=== PATIENT | male | born 1960 | race Caucasian/White ===

== ENCOUNTER 2018-04-28 06:40 | Inpatient (IN) ==
--- NOTE | 2018-04-19 14:00 | EKG Report ---
Test Performed on : 04/19/2018 1:54:25 PM Test Reason : PAT Blood Pressure : / mmHG Vent. Rate : 079 BPM Atrial Rate : 079 BPM P-R Int : 142 ms QRS Dur : 086 ms QT Int : 356 ms P-R-T Axes : 062 078 065 degrees QTc Int : 408 ms Normal sinus rhythm. Normal ECG When compared with ECG of 17-SEP-2015 21:31, Nonspecific T wave abnormality no longer evident in Anterolateral leads QT has shortened Unconfirmed Result
[2018-04-19 14:06] LABS: HEMATOCRIT 45.1 % (42.0-52.0); HEMOGLOBIN 14.4 g/dL (14.0-18.0); MCH 28.1 PG (27-31); MCHC 31.9 g/dL (33-37); MCV 87.9 FL (81-99); MPV 9.5 FL (7.4-10.4); RBC 5.13 XMIL (4.7-6.1); WBC 11.27 X1000 (4.8-10.8)
[2018-04-19 15:03] LABS: CALCIUM 9.3 mg/dL (8.8-10.2); CREATININE 1.3 mg/dL (0.7-1.2); POTASSIUM 3.8 mmol/L (3.5-5.1)
[2018-04-28] MEDS: MEFOXIN 2 GM/NS 2 GM/50 ML IVPB IV SCH ×2 (00:30→16:26)
[2018-04-28] MEDS ORDERED: TRANSDERM-SCOP ONE (06:59)
[2018-04-28] MEDS ORDERED: PEPCID ONE (06:59)
[2018-04-28] MEDS ORDERED: LR 1,000 ML ONE ×2 (06:59→08:31)
[2018-04-28] MEDS ORDERED: ENTEREG ONE (06:59)
[2018-04-28] MEDS ORDERED: VALIUM ONE (06:59)
[2018-04-28] MEDS ORDERED: MEFOXIN 2 GM/NS 2 GM/50 ML IVPB ONE (07:00)
[2018-04-28] MEDS ORDERED: FENTANYL ONE (07:40)
[2018-04-28] MEDS ORDERED: VERSED ONE (07:40)
[2018-04-28] MEDS ORDERED: DIPRIVAN 1% ONE (07:40)
[2018-04-28] MEDS ORDERED: EXPAREL 1.3% ONE (07:42)
[2018-04-28] MEDS ORDERED: SODIUM CHLORIDE 0.9% 10 ML ONE (07:42)
[2018-04-28] MEDS ORDERED: MARCAINE 0.5% ONE (07:44)
[2018-04-28] MEDS ORDERED: NEO-SYNEPHRINE ONE (07:57)
[2018-04-28] MEDS ORDERED: XYLOCAINE-MPF 2% ONE (07:57)
[2018-04-28] MEDS ORDERED: QUELICIN (DOSE) ONE (07:57)
[2018-04-28] MEDS ORDERED: DECADRON ONE (07:57)
[2018-04-28] MEDS ORDERED: ZOFRAN ONE (07:57)
[2018-04-28] MEDS ORDERED: NORCURON ONE ×2 (07:57→11:09)
[2018-04-28] MEDS ORDERED: STERILE WATER INJ. ONE ×2 (07:57→11:09)
[2018-04-28] MEDS ORDERED: NEOSTIGMINE ONE ×2 (07:58→13:55)
[2018-04-28 09:56] LABS: URINE SOURCE CATH
[2018-04-28 10:01] LABS: BILIRUBIN URINE NEGATIVE (NEGATIVE); BLOOD URINE NEGATIVE (NEGATIVE); COLOR YELLOW; GLUCOSE URINE NEGATIVE (NEGATIVE); KETONE URINE NEGATIVE (NEGATIVE); LEUKOCYTES URINE NEGATIVE (NEGATIVE); NITRITE URINE NEGATIVE (NEGATIVE); PH URINE 6.5; PROTEIN URINE NEGATIVE (NEGATIVE); TURBIDITY URINE CLEAR (CLEAR); UROBILINOGEN URINE NORMAL (NORMAL)
[2018-04-28 10:02] LABS: UR EPITHELIAL CELLS <10 /HPF (<10); URINE BACTERIA NEGATIVE /HPF; URINE RBC <10 /HPF (<10); URINE WBC <10 /HPF (<10)
[2018-04-28] MEDS ORDERED: DILAUDID ONE (10:36)
[2018-04-28] MEDS ORDERED: D5 1/2 NS + KCL 20 MEQ 1,000 ML ONE (12:24)
[2018-04-28] MEDS ORDERED: OFIRMEV 1000 MG/ISOTONIC SOLN 1,000 MG/100 ML BOTTLE ONE (12:25)
[2018-04-28] MEDS ORDERED: ROBINUL ONE (13:56)
[2018-04-28] MEDS ORDERED: TYLENOL PR PRN (14:10)
--- NOTE | 2018-04-28 14:54 | OPERATIVE NOTE ---
PROCEDURE DATE: 04/28/2018 PREOPERATIVE DIAGNOSIS: Right colon polyp with high-grade dysplasia. POSTOPERATIVE DIAGNOSIS: Right colon polyp with high-grade dysplasia. PROCEDURE: Laparoscopic robot assisted right hemicolectomy. SURGEON: Albert Rahman MD. LIFE SCIENTIST: Dr. Serna. Dr. Serna assisted with the entirety of the case. His presence was crucial for the completion of the case. ANESTHESIA: General endotracheal. INTRAOPERATIVE FINDINGS: Tumor was marked with Marleny ink on the lateral aspect of the ascending colon very proximally located. COMPLICATIONS: None at the time of this dictation. ESTIMATED BLOOD LOSS: 50 mL. SPECIMENS REMOVED: Right colon. BRIEF HISTORY: A 58-year-old male with a screening colonoscopy that had a high-grade dysplasia, polyp noted. It had been tattooed. It was felt that he would benefit from a colectomy. The risks, benefits, and alternatives were discussed. All questions answered. DESCRIPTION OF PROCEDURE IN DETAIL: After informed consent was obtained, patient brought to the operative theater, transferred to the operative table, placed in the supine position. General endotracheal anesthesia was then performed without complication. A formal time-out was then performed confirming patient, date, procedure. All were in agreement. At that time, attention was given to the abdomen. Abdomen was then prepped and draped in sterile fashion. We placed reverse trocar in the infraumbilical position using the Optiview technique. We then inserted an 8 mm trocar subxiphoid,, a 12 mm trocar on the left side in the anterior axillary line, an 8 mm trocar in the mid suprapubic area, and then a 5 mm trocar in the left lower quadrant. Using these, we docked the robot. I turned my attention to the robot console. We were able to identify the area of tattooing. We started by elevating the colon. We isolated the ileocolic artery, transected it, and then started doing a medial to lateral approach, dissecting all the way to identify the duodenum, preserving the duodenum. We came across the right colic branch of the middle colic which we preserved. We felt this would be a good place to do our staple. We dissected all the way both medially to laterally and transected across the colon at this point, and then transected across the terminal ileum. We could not use firefly because the patient had shellfish allergy. We then placed the colon up above the liver. We then brought our two ends into isoperistaltic anastomosis, firing the stapler intracorporal, and then closing the common channel running in layers using absorbable V-LOC suture. There was good blood flow to both sections. We then removed the mass by extending the infraumbilical incision and putting a wound protector in it and brought the colon out in its entirety. We then closed the infraumbilical incision with 0 Vicryl interrupted stitches. We then closed all skin incisions with 4-0 Monocryl. The patient tolerated the procedure well, was transferred back to the recovery room in stable condition. cc: Albert Rahman MD
[2018-04-28] MEDS: D5 1/2 NS + KCL 20 MEQ 1,000 ML IV SCH (16:33)
[2018-04-28] MEDS: OFIRMEV 1000 MG/ISOTONIC SOLN 1,000 MG/100 ML BOTTLE IV SCH ×2 (18:15→23:52)
[2018-04-28] MEDS: ULTRAM PO PRN ×2 (18:15→22:52)
[2018-04-28] MEDS ORDERED: REQUIP PO PRN (19:12)
[2018-04-28] MEDS ORDERED: HALL'S COUGH LOZENGE MT PRN (21:06)
[2018-04-28] MEDS: ELAVIL PO SCH (21:29)
[2018-04-28] MEDS: MIRAPEX PO SCH (21:29)
[2018-04-28] MEDS: ROBAXIN PO SCH (21:29)
[2018-04-28] MEDS: FLOMAX PO SCH (21:30)
[2018-04-28] MEDS: PRAVACHOL PO SCH (21:31)
[2018-04-28] MEDS: HEPARIN SUBQ SCH (21:32)
[2018-04-28] MEDS: PERIDEX MT SCH (21:32)
[2018-04-28] MEDS: UROCIT-K PO SCH (21:38)
[2018-04-29] MEDS: ULTRAM PO PRN (03:25)
[2018-04-29] MEDS: MEFOXIN 2 GM/NS 2 GM/50 ML IVPB IV SCH (03:26)
[2018-04-29] MEDS: ZOFRAN IV PRN ×3 (03:30→23:28)
[2018-04-29] MEDS: DILAUDID IV PRN ×4 (05:48→20:43)
[2018-04-29] MEDS: HEPARIN SUBQ SCH ×3 (06:41→23:30)
[2018-04-29] MEDS: OFIRMEV 1000 MG/ISOTONIC SOLN 1,000 MG/100 ML BOTTLE IV SCH (06:41)
[2018-04-29] MEDS: LOFIBRA PO SCH (08:54)
[2018-04-29] MEDS: NEXIUM PO SCH (08:55)
[2018-04-29] MEDS: KLONOPIN PO SCH (08:55)
[2018-04-29] MEDS: ENTEREG PO SCH ×2 (08:55→20:29)
[2018-04-29] MEDS: ROBAXIN PO SCH ×2 (08:55→20:28)
[2018-04-29] MEDS: COZAAR PO SCH (08:55)
[2018-04-29] MEDS: PERIDEX MT SCH ×2 (08:57→20:29)
[2018-04-29] MEDS: UROCIT-K PO SCH ×2 (08:57→20:29)
[2018-04-29] MEDS ORDERED: TYLENOL PR PRN (12:00)
[2018-04-29] MEDS ORDERED: TYLENOL PO PRN (12:00)
[2018-04-29] MEDS: D5 1/2 NS + KCL 20 MEQ 1,000 ML IV SCH ×2 (16:28→20:42)
--- NOTE | 2018-04-29 17:15 | GENERAL SURGERY PROGRESS NOTE ---
DATE: 04/29/2018 He is postop day 1 after robotic right colectomy done by Dr. Rahman. He is complaining of abdominal distention and pain. He does report that he has been somewhat nauseated. He says he has passed a little bit of flatus which gives him a little bit of relief and he has passed some old blood in his stool. He is afebrile. Heart rate is 93. Blood pressure 137/86. His abdomen is distended tympanitic. Some bowel sounds are present. He wants his Meza catheter out so it would make it easy for him to get to the bathroom. PLAN: Will be to remove his Meza catheter. We will recheck his labs tomorrow. cc: MD Albert Purvis MD
[2018-04-29] MEDS: PRAVACHOL PO SCH (20:28)
[2018-04-29] MEDS: MIRAPEX PO SCH (20:28)
[2018-04-29] MEDS: ELAVIL PO SCH (20:29)
[2018-04-29] MEDS: FLOMAX PO SCH (20:30)
[2018-04-29] MEDS ORDERED: MYLICON PO PRN (21:59)
[2018-04-29] MEDS ORDERED: DULCOLAX PR ONE (22:02)
[2018-04-30] MEDS ORDERED: MYLICON DROPS PO PRN ×2 (00:30→00:33)
[2018-04-30] MEDS: DILAUDID IV PRN (00:39)
[2018-04-30] MEDS ORDERED: MYLICON PO PRN (00:45)
[2018-04-30] MEDS: HEPARIN SUBQ SCH ×4 (00:50→22:02)
[2018-04-30] MEDS: UROCIT-K PO SCH ×3 (00:51→22:02)
[2018-04-30] MEDS: ZOFRAN IV PRN (05:08)
[2018-04-30 06:46] LABS: BASO# 0.02 X1000 (0.0-0.2); BASO% 0.1 % (0.0-0.8); EOS# 0.16 X1000 (0.0-0.7); EOS% 0.9 % (0.0-10.0); HEMATOCRIT 43.5 % (42.0-52.0); HEMOGLOBIN 14.2 g/dL (14.0-18.0); LYMPH# 1.76 X1000 (1.2-3.4); LYMPH% 9.5 % (20.5-51.1); MCH 28.6 PG (27-31); MCHC 32.6 g/dL (33-37); MCV 87.7 FL (81-99); MONO# 1.28 X1000 (0.11-0.59); MONO% 6.9 % (1.7-9.3); MPV 9.9 FL (7.4-10.4); NEUT# 15.27 X1000 (1.4-6.5); NEUT% 82.6 % (42.2-75.2); PLT 414 X1000 (130-400); RBC 4.96 XMIL (4.7-6.1); RDW 14.2 % (11.5-14.5); WBC 18.49 X1000 (4.8-10.8)
--- NOTE | 2018-04-30 08:04 | GENERAL SURGERY PROGRESS NOTE ---
DATE: 04/30/2018 Mr. Cotter is afebrile, T-max 99.5 degrees, heart rate 98, blood pressure 157/85. He did vomit this morning. His abdomen is distended and tympanitic. He requested his Meza be removed yesterday. We did drain his bladder last night but this morning, he only has 90 mL in his bladder so we will give him more time today to urinate. Intake 2729 and output 2175. White count 18,500, hemoglobin 14.2. PLAN: I have cautioned him against taking too much by mouth because of his ileus. We will give him more time with regard to his urinary output. He is on KVO fluids. I did tell him that the narcotics will slow his gut transit down, even though he says he needs something for relief. We will recheck his labs tomorrow. cc: MD Albert Purvis MD
[2018-04-30] MEDS: KLONOPIN PO SCH (08:58)
[2018-04-30] MEDS: PERIDEX MT SCH ×2 (08:58→22:03)
[2018-04-30] MEDS: COZAAR PO SCH (08:58)
[2018-04-30] MEDS: LOFIBRA PO SCH (08:58)
[2018-04-30] MEDS: NEXIUM PO SCH (08:58)
[2018-04-30] MEDS: ENTEREG PO SCH ×2 (08:58→22:01)
[2018-04-30] MEDS: ROBAXIN PO SCH ×2 (08:58→22:01)
[2018-04-30] MEDS ORDERED: MAALOX PLUS LIQUID PO PRN (12:21)
[2018-04-30] MEDS: D5 1/2 NS + KCL 20 MEQ 1,000 ML IV SCH (18:46)
[2018-04-30] MEDS: ELAVIL PO SCH (22:01)
[2018-04-30] MEDS: ULTRAM PO PRN (22:01)
[2018-04-30] MEDS: MIRAPEX PO SCH (22:02)
[2018-04-30] MEDS: PRAVACHOL PO SCH (22:02)
[2018-04-30] MEDS: FLOMAX PO SCH (22:02)
[2018-05-01 06:33] LABS: BASO# 0.05 X1000 (0.0-0.2); BASO% 0.4 % (0.0-0.8); EOS# 0.73 X1000 (0.0-0.7); HEMATOCRIT 38.8 % (42.0-52.0); HEMOGLOBIN 12.5 g/dL (14.0-18.0); LYMPH# 1.87 X1000 (1.2-3.4); LYMPH% 15.3 % (20.5-51.1); MCH 28.6 PG (27-31); MCHC 32.2 g/dL (33-37); MCV 88.8 FL (81-99); MONO# 0.85 X1000 (0.11-0.59); MONO% 6.9 % (1.7-9.3); MPV 10.1 FL (7.4-10.4); NEUT# 8.76 X1000 (1.4-6.5); NEUT% 71.4 % (42.2-75.2); PLT 363 X1000 (130-400); RBC 4.37 XMIL (4.7-6.1); WBC 12.26 X1000 (4.8-10.8)
[2018-05-01 06:40] LABS: AGAP 10; BUN 11 mg/dL (8-22); CHLORIDE 96 mmol/L (98-107); COSMO 261; CREATININE 1.2 mg/dL (0.7-1.2); ESTIMATED GFR > 60; GLUCOSE 120 mg/dL (70-104); SODIUM 130 mmol/L (136-145); TCO2 24 mmol/L (25-35)
[2018-05-01] MEDS: ULTRAM PO PRN (08:07)
[2018-05-01] MEDS: HEPARIN SUBQ SCH ×3 (08:15→21:25)
--- NOTE | 2018-05-01 09:15 | GENERAL SURGERY PROGRESS NOTE ---
DATE: 05/01/2018 SUBJECTIVE: Patient seems to be doing okay. He has had a bowel movement which has been mostly liquid. He is voiding okay. OBJECTIVE: Vital Signs: Patient is currently afebrile. His vital signs stable. General: No acute distress. Cardiovascular: Regular rate and rhythm. Lungs: Grossly clear. Abdomen: Soft appropriately tender. ASSESSMENT AND PLAN: A 58-year-old gentleman postop day #3 from laparoscopic robot assisted right hemicolectomy. 1. Postoperative state at this time, the patient seems to be doing okay. He is able to void. It is okay for the patient to shower. He is slowly advancing to a GI soft diet. We will await return of bowel function. We do have labs from this morning. Hopefully, we can have the patient discharged in the near future once his return of bowel function returns. cc: Albert Rahman MD
[2018-05-01] MEDS: LOFIBRA PO SCH (09:17)
[2018-05-01] MEDS: PERIDEX MT SCH ×2 (09:17→21:25)
[2018-05-01] MEDS: NEXIUM PO SCH (09:17)
[2018-05-01] MEDS: ENTEREG PO SCH ×2 (09:17→21:25)
[2018-05-01] MEDS: KLONOPIN PO SCH (09:17)
[2018-05-01] MEDS: ROBAXIN PO SCH ×2 (09:17→21:26)
[2018-05-01] MEDS: UROCIT-K PO SCH ×3 (09:18→21:30)
[2018-05-01] MEDS: COZAAR PO SCH (09:18)
[2018-05-01] MEDS: FLOMAX PO SCH (21:25)
[2018-05-01] MEDS: ELAVIL PO SCH (21:25)
[2018-05-01] MEDS: PRAVACHOL PO SCH (21:25)
[2018-05-01] MEDS: MIRAPEX PO SCH (21:26)
[2018-05-02 05:22] VITALS: BP 118/71
[2018-05-02] MEDS: HEPARIN SUBQ SCH (06:51)
--- NOTE | 2018-05-02 07:17 | GENERAL SURGERY PROGRESS NOTE ---
DATE: 05/02/2018 SUBJECTIVE: Patient doing well, tolerating diet, afebrile, up and ambulating. Pain controlled with p.o. pain medicine. ASSESSMENT AND PLAN: At this point, it is safe to discharge him home. He is postoperative day #4 from a laparoscopic robot-assisted right hemicolectomy. Pathology is still pending. cc: Albert Rahman MD
--- NOTE | 2018-05-02 07:38 | DISCHARGE SUMMARY ---
ADMISSION DATE: 04/28/2018 DISCHARGE DATE: 05/02/2018 ADMITTING DIAGNOSIS: Colon cancer. DISCHARGE DIAGNOSIS: Status post laparoscopic robot-assisted right hemicolectomy. ADMITTING PHYSICIAN: Dr. Albert Rahman. CONSULTATIONS: None. PROCEDURES: On 04/28/2018, patient underwent laparoscopic robot-assisted right hemicolectomy. BRIEF HISTORY AND COURSE OF STAY: A 58-year-old gentleman, known to me for right colon cancer, decided that he would benefit from colectomy. The risks, benefits, and alternatives were discussed, which he understood and voiced understanding. He was admitted, underwent previously described procedure. His postop course was not complicated. He was started on diet. He did have a little bit of nausea but he was able to progress to a regular diet and his pain was controlled with p.o. pain medicine. On the day of discharge, he was up and ambulating, having bowel movements, tolerating a regular diet. Pain being controlled by p.o. pain medicine. It is felt that he would be safe to be discharged. All arrangements were made. DISPOSITION: Home. DISCHARGE CONDITION: Stable. DISCHARGE MEDICATIONS: He was given a prescription for tramadol. FOLLOWUP: Patient told to follow up with myself and his primary care physician. cc: Albert Rahman MD
== END 2018-05-02 08:21 | disposition home or self-care (01) | DRG 331 ==
LOC: SURHOLD 06:40 → 4N 13:31
PROVIDERS: ADMIT Surgery; ATTEND Surgery
CPT/HCPCS: 80048; 81001; 82378; 85025; 85027; 88307; 88313; 93005; 93010; 94761; 94799; A9270; C9290; J0131; J0330; J0694; J1100; J1170; J1644; J2250; J2370; J2405; J3010; J3480; J7120; S0020; S2900